=== PATIENT | male | born 1960 | race Caucasian/White ===

== ENCOUNTER 2018-07-16 09:13 | Inpatient (IN) | payer BC ==
[2018-07-16] VITALS (24 sets, daily range): BP systolic 88–177; BP diastolic 50–87; BMI 39.3
[~2018-07-16] VITALS: Ht 175.3 cm; Wt 120.9 kg
--- NOTE | ~2018-07-16 | CN ---
PATIENT NAME:YADI CLAY MEDICAL RECORD: [id number] : 64 LOCATION:[facility].CV06 ADMIT DATE: 07/16/18 ACCOUNT: [id number] CONSULTING PHYSICIAN: JESSY ALFARO MD REFERRING PHYSICIAN: JAYE GONZALEZ MD DATE OF CONSULTATION: 07/16/2018 CONSULT REQUESTING PHYSICIAN: Dr. Gonzalez REASON FOR CONSULTATION: Vent management, cardiopulmonary arrest. HISTORY OF PRESENT ILLNESS: Mr. Clay is a 57-year-old gentleman who was brought into the ER by EMS. The patient was walking with his friend and he complained of chest pain and just fell on his back. He injured his head. The friend called EMS as well as started resuscitating the patient almost for 30 minutes. The patient was intubated. On arrival to the ER, the patient was considering the chest pain, taken to the cardiac boot and shoe laborer and by Dr. Gonzalez and found out the patient has a right RCA total occlusion. Now, the patient is unresponsive. He is seizing. PAST MEDICAL HISTORY: 1. Obstructive sleep apnea. 2. Morbid obesity. 3. History of congestive heart failure. 4. Hypothyroidism. 5. Diabetes mellitus. PAST SURGICAL HISTORY: He has thyroidectomy. ALLERGIES: There are no known drug allergies. MEDICATIONS: On Xceive is reviewed. PERSONAL AND SOCIAL HISTORY: The patient is an ex-smoker according to the . FAMILY HISTORY: Significant for hypertension. PHYSICAL EXAMINATION: GENERAL: Now, the patient is orally intubated and sedated. VITAL SIGNS: The blood pressure is 155 to 177/83, pulse is 96, respiration is 23, temperature 96.1, SPO2 is 96% to 100% on assist control mechanical ventilation, 60% oxygen. HEENT: Conjunctivae are pink. The pupil equal, round, reactive to light. NECK: Supple, no JVD. CHEST: Excursion is minimal on both sides. There is no wheeze, no rales. HEART: Rhythm regular, normal sound, no murmur. ABDOMEN: Soft, bowel sounds present. No hepatosplenomegaly. RECTAL: Deferred. EXTREMITIES: No cyanosis, no clubbing, no pedal edema. SKIN: Warm, normal turgor. CENTRAL NERVOUS SYSTEM: The patient is orally intubated and sedated. The pupils are equal and reactive to light. LABORATORY DATA: CBC: The WBC is 22.7, hemoglobin 14.6, hematocrit 44.6, and the platelet count 193. CONSULT REPORT [id number] YADI CLAY Chemistry: Sodium 140, potassium 4.1, BUN is 17, creatinine 1.1. The AST is 383, ALT is 540. Albumin is 3.3. ABG, the pH is 7.25, pCO2 is 40.7, the pO2 was 235, the bicarbonate 18.2, the lactic acid level is 3. IMPRESSION: 1. Acute respiratory failure secondary to #2. 2. Cardiopulmonary arrest. 3. Possible anoxic encephalopathy. 4. Seizure disorder. 5. Metabolic acidosis. 6. Congestive heart failure with ejection fraction of 30%. 7. Lactic acidosis. 8. Leukocytosis. 9. Elevated liver enzymes, most likely shock liver. 10. Coronary artery disease, total occlusion of right coronary artery and status post stent. RECOMMENDATIONS: 1. I will continue mechanical ventilation, adjust the setting. 2. Start on empiric Zosyn. 3. Start on propofol. 4. Increase the dose of Ativan to 4 mg p.o. 1-2 hourly p.r.n. for seizure. 5. DVT and GI bleed prophylaxis. 6. Cerebyx 1000 mg, the patient is already loaded. 7. Bicarbonate drip. 8. Follow up labs and chest radiograph. Discussed in length with the family. Discussed with Dr. Kolb. The CT scan is negative for any acute process except the hematoma. The critical care time 60 minutes. TRANSINT:[id number] Voice Confirmation ID: [id number] DOCUMENT ID: [id number] JESSY ALFARO MD CC: [id number] DICTATION DATE: 07/16/181728 ADMINISTRATIVE ASSISTANT RECEPTIONIST: 07/17/18 0641 ADM IN [facility] [address] [place] [address]
--- NOTE | ~2018-07-16 | MORECARE ---
CASE MANAGEMENT DISCHARGE SUMMARY PATIENT: YADI CLAY UNIT: [id number] ADM DATE: 07/16/18 AGE: 57 : 64 SEX: M ROOM/BED: D.[facility] AUTHOR: BAM HUBBARD PHYSICIAN: REFERRING PHYSICIAN: JAYE RICHARDS MD DATE OF SERVICE: 07/18/18 Discharge Plan Patient Name: YADI CLAY Facility: [facility]:[place] : 1960 Planned Disposition: Acute Care Hospital Anticipated Discharge Date: 07/17/18 Discharge Date: 07/17/2018 Expected LOS: 1 Initial Reviewer: [email or web address] Initial Review Date: 07/16/2018 Generated: 07/18/18 10:57 am Comments DCP- Discharge Planning Updated by [email or web address]: Xiomara Lanier on 07/17/18 5:[address] LATE ENTRY 1345 DR RICHARDS TELEPHONED [facility] TO [place] FOR TRANSFER TO NEUROLOGY SERVICES WHICH IS NOT AVAILABLE AT [facility] COORDINATORS. THEY CALLED [facility] FOR [facility] AND FAXED TRANSFER BACK AGREEMENT. CHART PREPARED. DISC HAD BEEN REQUESTED WITH RADIOLOGY FILMS. PATIENT ON VENT W/ CHEST TUBE, CARDIAC MONITORING, IV FLDS, IV VANCOMYCIN, IV DILANTIN, IV ZOSYN, DIPRIVAN. TC TO [facility] TO [place] GROUND TRANSPORT DIRECTED BY DR RICHARDS. PCS FORM COMPLETED. CM SPOKE WITH OTILIA AT [facility]. PATIENT ACCEPTED BY DR VENKAT GUADALUPE. AWAITING BED ASSIGNMENT. 1700 CM ADVISED THAT BED HAD BEEN ASSIGNED. ALEISHA, NURSING PHARMACIST [facility] OF TRANSFER. Last DP export: 07/17/18 5:21 Patient Name: YADI CLAY Page 31169 at 0957 All edits/amendments must be made on the electronic document DICTATION DATE: 07/18/18956 CYLINDER MACHINE OPERATOR PULP DRIER: LUIS 07/18/18956 RPT#: [id number] DC DATE:07/17/18 STATUS: DIS IN [facility] [address] [place] [address] END OF REPORT
--- NOTE | ~2018-07-16 | HEMODYNAMI ---
PATIENT:YADI CLAY MEDICAL RECORD: [id number] : 64 LOCATION:[facility] ADMISSION DATE: 07/16/18 Generatedon:07/16/201810:45 Patient name: YADI CLAY Patient #: [id number] SSN: : 1 11/12/1959 Date of study: 07/16/2018 Page: Of Hemodynamic Procedure Report Patient Data Patient Demographics Procedure consent was obtained First Name: YADI Gender: Male Last Name: OBED : 1960 Patient #: [id number] Age: 57 year(s) Race: Unknown Additional ID: [id number] Contact details [address]: [address] [place] [address] State: [place] City: [place] Zip code: [address] Admission Admission Data Admission Date: 07/16/2018 Admission Time: 9:13 Admit Source: Emergency department Height (in.): 70 BSA: 2.51 (m2) Height (cm.): 177.8 BMI: 44.48 (kg/m2) Weight (lbs.): 310 Weight (kg.): 140.61 Procedure Procedure Types Cath Procedure Diagnostic Procedure [facility] w/Coronaries Sedation Charges Moderate Sedation up to 15 minutes PCI Procedure AMI/SVG/HIDE HOUSE SUPERVISOR PTCA or Stent AMI-BMS/JAMEY Initial Procedure Description Procedure Date Procedure Date: 07/16/2018 Procedure Start Time: 9:58 Procedure End Time: 10:21 Procedure Staff Name Function Braeden Gonzalez MD Performing Physician Mindy Estrada RT Monitor Hilario Millan RN Nurse Anam Osullivan RT Scrub Procedure Data Cath Procedure Fluoroscopy Diagnostic fluoroscopy Total fluoroscopy Time: 2.7 time: 2.7 min min Diagnostic fluoroscopy Total fluoroscopy dose: 875 dose: 875 mGy mGy Contrast Material Contrast Material Type Amount (ml) Isovue 300 92 Entry Location Entry Primary Successful Side Size Upsize Upsize Entry Closure Succes sful Closure Location (Fr) 1 (Fr) 2 (Fr) Remarks Device Remarks Femoral Right 6 Fr Exoseal artery Short Estimated blood loss: 10 ml Diagnostic catheters Device Type Used For End Catheter Placement MULTIPACK Pigtail 5 Fr Procedure catheter MULTIPACK JL 4.0 5Fr Procedure catheter MULTIPACK 3DRC 5Fr Procedure catheter Procedure Complications No complications Procedure Medications Medication Administration Route Dosage Oxygen 100 Lidocaine 2% added to field 20 Heparin Flush Bag added to field 2 bags (1000units/500ml NS) 0.9% NaCl I.V. 100 ml/hr Dopamine I.V. drip 5 mcg/kg/min (400mg/250ml D5W) Heparin Bolus I.V. 5000 units Integrilin (Bolus I.V. 10.7 ml 2mg/ml) Integrilin (Bolus I.C. 10.7 ml 2mg/ml) Hemodynamics Rest BSA: 2.51 (m2) O2 Consumption: Estimated: 310.35 (ml/min) O2 Consumption indexed : Estimated:123.65 (ml/min/m) Heart Rate: 84 (bpm) Snapshots Pre Cath Intra NCS Post Cath Vital Signs Time Heart Resp SPO2 etCO2 NIBP Rhythm Pain Sedation Rate (ipm) (%) (mmHg) (mmHg) Status Level (bpm) 9:50:58 85 8 100 0 83/40(63) NSR 0 (11) 4(A) , No pain 9:55:16 82 8 100 0 92/42(63) NSR 0 (11) 4(A) , No pain 9:59:32 82 8 92 0 80/62(68) NSR 0 (11) 4(A) , No pain 10:03:44 83 8 99 0 98/52(72) NSR 0 (11) 4(A) , No pain 10:08:04 56 8 100 0 97/42(68) NSR 0 (11) 4(A) , No pain 10:12:20 82 8 98 0 95/56(67) NSR 0 (11) 4(A) , No pain 10:16:36 89 10 100 0 98/54(79) NSR 0 (11) 4(A) , No pain 10:20:54 92 13 100 0 107/48(80) NSR 0 (11) 4(A) , No pain 10:25:14 94 11 100 0 109/58(80) NSR 0 (11) 4(A) , No pain 10:29:36 95 14 100 0 108/53(74) NSR 0 (11) 4(A) , No pain 10:33:58 98 15 100 0 115/50(82) NSR 0 (11) 4(A) , No pain 10:38:21 97 18 100 0 116/61(93) NSR 0 (11) 4(A) , No pain 10:42:20 85 15 100 0 No Cuff NSR 0 (11) 4(A) , No pain Medications Time Medication Route Dose Verified Delivered Reason Notes Effectiveness by by 9:50:41 Oxygen intubated 100% Braeden Rich for low 02 sat s Carlos Millan RN 9:56:49 Lidocaine 2% added to 20ml vial Braeden Rich used for field Carlos Millan RN procedure 9:57:52 Heparin Flush added to 2 bags Braeden Rich used for Bag field Carlos Millan RN procedure (1000units/500ml NS) 9:57:59 0.9% NaCl I.V. 100 ml/hr Braeden Rich Per physician Carlos Millan RN 10:02:12 Dopamine I.V. drip 5 Braeden Rich For hypotensio n (400mg/250ml mcg/kg/min Carlos Millan RN D5W) 10:04:20 Heparin Bolus I.V. 5000 units Braeden Rich for verified Carlos Millan RN anticoagulation with dr gonzalez 10:05:43 Integrilin I.V. 10.7 ml Braeden Rich for (Bolus 2mg/ml) Carlos Millan RN antiplatelet therapy 10:07:37 Integrilin I.C. 10.7 ml Braeden Rich for total (Bolus 2mg/ml) Carlos Millan RN antiplatelet wastage therapy 8.6 ml of the total 3 vials used for procedure. Procedure Log Time Note 9:31:22 Admit Source: Emergency department 9:31:30 Diagnostic Cath status Emergency 9:31:32 Hilario Millan RN sent for patient. Start room use. 9:31:35 Time tracking: Call back (After hours or weekends) 9:31:47 Plan of Care:Hemodynamics will remain stable., Cardiac rhythm will remain stable., Comfort level will be maintained., Respiratory function will remain adequate., Patient/ family verbilizes understanding of procedure., Procedure tolerated without complication., Recovers from procedure without complications.. 9:31:50 Patient arrives emergently. 9:31:54 H&P Date Dictated: 07/16/2018 Emergent; H&P N/A. 9:31:58 Pre-procedure instructions explained to patient. 9:32:01 Family in waiting room. 9:32:05 Patient NPO since Midnight. 9:36:31 Patient Height : 70 inches 9:36:38 Patient Weight : 310 lbs 9:45:11 Patient received from ED to CCL 1 On ventilator. Tansferred to table in Supine position. 9:49:17 Warm blankets applied, and linden hugger turned on for patient comfort. 9:49:18 Correct patient and procedure confirmed by team. 9:49:19 Signed procedure consent form obtained from spouse. 9:49:32 ECG and BP/O2 sat monitors applied to patient. 9:49:33 Vital chart was started 9:50:41 Oxygen 100% intubated was administered by Hilario Millan RN; for low 02 sats; 9:55:10 Baseline sample Acquired. 9:55:16 Rhythm: sinus rhythm 9:55:50 Full Disclosure recording started 9:56:00 Patient diabetic? Yes. 9:56:02 If diabetic: On Metformin? No 9:56:14 IV patent on arrival in right forearm with 0.9% NaCl at [facility]. 9:56:29 Bilateral groins area was prepped with chlora-prep and draped in sterile fashion 9:56:31 Alarms reviewed by R. N. 9:56:31 Sharps counted by scrub and verified by R.N. 9:56:33 Physician arrived 9:56:33 --------ALL STOP TIME OUT------ 9:56:34 Final Timeout: patient, procedure, and site verified with staff and physician. All members of the team are in agreement. 9:56:40 Bilateral groins site verified by team. 9:56:43 Physical assessment completed. ASA score P 2 - A patient with mild systemic disease as per Braeden Gonzalez MD. 9:56:47 Sedation plan: IV Moderate Sedation Medication:Versed, Fentanyl 9:56:49 Lidocaine 2% 20ml vial added to field was administered by Hilario Millan RN; used for procedure; 9:57:52 Heparin Flush Bag (1000units/500ml NS) 2 bags added to field was administered by Hilario Millan RN; used for procedure; 9:57:56 Use device set Femoral Dx 9:57:58 Procedure started. 9:57:59 0.9% NaCl 100 ml/hr I.V. was administered by Hilario Millan RN; Per physician; 9:58:02 Local anesthetic to right femoral artery with Lidocaine 2% by Braeden Gonzalez MD.INITIAL ACCESS ONLY 9:58:13 A 6 Fr Short sheath was inserted into the Right Femoral artery 9:58:17 ACIST Syringe (41600) opened to sterile field. 9:58:18 Bag Decanter () opened to sterile field. 9:58:19 Medline Cath Pack ([id number]) opened to sterile field. 9:58:19 DIAGNOSTIC WIRE .035 260cm J wire (925011) opened to sterile field. 9:58:21 ACIST Hand Control (91894) opened to sterile field. 9:58:21 ACIST Manifold (69202) opened to sterile field. 9:58:22 DIAGNOSTIC Multipack 5Fr catheter set (SM1183) opened to sterile field. 9:58:22 Tegaderm 4 x 4 (1626W) opened to sterile field. 9:58:23 PERCUTANEOUS ENTRY 19GA needle opened to sterile field. 9:58:37 SHEATH Prelude 6Fr 0.035 (VUJ-2T-23-035) opened to sterile field. 9:59:22 A MULTIPACK Pigtail 5 Fr catheter was advanced over the wire and used for Procedure. 9:59:28 EF : 35 % 9:59:30 Catheter removed. 9:59:47 A MULTIPACK JL 4.0 5Fr catheter was advanced over the wire and used for Procedure. 10:00:38 LCA angiography performed. 10:01:15 Catheter removed. 10:01:36 A MULTIPACK 3DRC 5Fr catheter was advanced over the wire and used for Procedure. 10:02:12 Dopamine (400mg/250ml D5W) 5 mcg/kg/min I.V. drip was administered by Hilario Millan RN; For hypotension; 10:02:17 RCA angiography performed. 10:02:18 Catheter removed. 10:04:20 Heparin Bolus 5000 units I.V. was administered by Hilario Millan RN; for anticoagulation; verified with dr tauth 10:04:54 GUIDE 6FR AR 2.0 SH catheter ([id number]) opened to sterile field. 10:04:58 Proceeding to intervention. 10:05:15 Study PCI Site: [place] mRCA has 100% stenosis. 10:05:35 6 Fr AR2 guide catheter was inserted over the wire 10:05:43 Integrilin (Bolus 2mg/ml) 10.7 ml I.V. was administered by Hilario Millan RN; for antiplatelet therapy; 10:05:44 choice pt wire advanced. 10:06:34 Inflate balloon Inflation number: 1 A EUPHORA 2.5 x 15 Balloon ([id number]) was prepped and advanced across the Mid RCA, then inflated to 13 LEIA for 0:03 (min:sec). 10:06:48 Inflation number: 2 The EUPHORA 2.5 x 15 Balloon ([id number]) was reinflated across the Mid RCA, to 13 LEIA for 0:10 (min:sec). 10:07:37 Integrilin (Bolus 2mg/ml) 10.7 ml I.C. was administered by Hilario Millan RN; for antiplatelet therapy; total wastage 8.6 ml of the total 3 vials used for procedure. 10:07:58 Balloon removed over the wire. 10:09:04 Place stent Inflation Number: 3 A INTEGRITY RX 3.0 x 22 stent ([id number]) was prepped and advanced across the Mid RCA. The stent was deployed at 11 LEIA for 0:04 (min:sec). 10:10:19 EXOSEAL 6Fr (EX600) opened to sterile field. 10:10:22 CHOICE PT Extra Support 182cm wire ([id number]) opened to sterile field. 10:10:24 INFLATOR Merit BasixCompak (SQ4992) opened to sterile field. 10:15:58 Wire removed. 10:15:58 Guide catheter removed. 10:16:10 Sheath removed intact; hemostasis achieved with Exoseal to the Right Femoral artery. 10:16:13 Procedure ended.(Physican Out) 10:17:55 Fluoroscopy time 02.70 minutes. 10:18:00 Fluoroscopy dose: 875 mGy 10:18:00 Flurop Dose total: 875 10:19:43 Contrast amount:Isovue 300 92ml. 10:19:46 Sharps counted by scrub and verified by R.N. 10:19:47 Insertion/operative site no bleeding no hematoma. 10:19:51 Post Procedure Pulses reassessed and unchanged 10:19:55 Post-procedure physical assessment completed. ASA score P 2 - A patient with mild systemic disease as per Braeden Gonzalez MD. 10:19:58 Post procedure rhythm: sinus rhythm 10:20:04 Estimated blood loss: 10 ml 10:20:06 Post procedure instruction explained to patient.Patient verbalizes understanding. 10:20:41 Procedure type changed to Cath procedure, Diagnostic procedure, LHC, LHC w/Coronaries, Sedation Charges, Moderate Sedation up to 15 minutes, PCI procedure, AMI/SVG/HIDE HOUSE SUPERVISOR PTCA or Stent, AMI-BMS/JAMEY Initial 10:20:43 Procedure and supply charges have been captured, reviewed, submitted and are correct. 10:21:02 Procedure Complication : No complications 10:21:05 See physician's report for complete and final results. 10:21:07 Report given to CVICU. 10:21:11 Patient transfered to CVICU with Bed. 10:21:34 Procedure ended. 10:21:34 Full Disclosure recording stopped 10:21:37 End room use (Document Last) 10:45:52 Vital chart was stopped Intervention Summary Intervention Notes Time ActionType Lesion and Equipment Action# Pressure Duration Attributes Used 10:06:34 Inflate Mid RCA EUPHORA 2.5 1 13 00:03 balloon x 15 Balloon ([id number]) 10:06:48 Reinflate Mid RCA EUPHORA 2.5 2 13 00:10 balloon x 15 Balloon ([id number]) 10:09:04 Place stent Mid RCA INTEGRITY RX 3 11 00:04 3.0 x 22 stent ([id number]) Device Usage Item Name Manufacture Quantity Catalog Number Hospital Part Current Minimal Lot# / Charge Number Stock Stock Serial# Code ACIST Syringe Acist 1 02007 090502 439499 234420 20 (04530) [employer] Systems Inc Bag Decanter Microtek 1 174050 27173 095264 5 () Medical Inc. Medline Cath Medline 1 [id number] 492518 12219 979186 5 Pack ([id number]) DIAGNOSTIC WIRE St Lee 1 377866 162868 717326 889495 30 .035 260cm J wire (452028) ACIST Hand Acist 1 53640 561832 857343 293623 5 Control (06026) Medical Systems Inc ACIST Manifold Acist 1 31097 531574 205737 811180 5 (81241) Medical Systems Inc DIAGNOSTIC Cardinal 1 EP4429 804317 52249 407500 30 Multipack 5Fr Health catheter set (QA3693) Tegaderm 4 x 4 3M 1 1626W 931776 203334 472273 5 (1626W) PERCUTANEOUS Cook Medical 1 P59137 166598 192593 5 ENTRY 19GA needle SHEATH Prelude Merit 1 [id number] 367713 7919845 353174 5 6Fr 0.035 Medical (MCG-9F-83-035) MULTIPACK Cardinal 1 444512 5 Pigtail 5 Fr Health catheter MULTIPACK JL Cardinal 1 505163 5 4.0 5Fr Health catheter MULTIPACK 3DRC Cardinal 1 402704 5 5Fr catheter Health GUIDE 6FR AR Medtronic 1 [id number] 529488 03174 189876 1 2.0 SH catheter ([id number]) EUPHORA 2.5 x Medtronic 1 [id number] 943064 915993 084772 5 [id number] 15 Balloon ([id number]) INTEGRITY RX Medtronic 1 [id number] 522024 742949 774549 5 [id number] 3.0 x 22 stent ([id number]) EXOSEAL 6Fr Cardinal 1 EX600 839013 865144 716408 10 (EX600) Health CHOICE PT Extra Merrill 1 [id number] 455693 462993 495275 5 Support 182cm Scientific wire ([id number]) INFLATOR Merit Merit 1 XP1955 856023 534232 128633 15 [facility] (LC1775) Signature Audit Onset Stage Time Signature Unsigned Intra-Procedure 07/16/2018 Mindy Estrada 10:45:49 AM RT(R) Signatures Monitor : Mindy Estrada Signature : RT Date : Time : [facility] [address] [place] [address]
--- NOTE | ~2018-07-16 | OP ---
PATIENT NAME: YADI CLAY MEDICAL RECORD: [id number] :64 LOCATION:[facility]06 ADMISSION DATE:07/16/18 SURGEON: JAYE RICHARDS MD DATE OF OPERATION: 07/16/2018 PROCEDURES: 1. PTCA and stent of RCA. 2. Left heart catheterization. 3. Selective coronary angiography. 4. Left ventriculogram. INDICATION: Status post cardiopulmonary arrest, myocardial infarction. PROCEDURE IN DETAIL: After informed consent was obtained and after detailed explanation of risks, benefits as well as alternative therapies, the patient's family elected to proceed with emergent cardiac catheterization. FINDINGS: The left ventriculogram was performed in standard 30-degree SHIN view, reveals global hypokinesis throughout all segments. Overall ejection fraction 30% to 35%. SELECTIVE CORONARY ANGIOGRAPHY: 1. Left main showed no significant angiographic disease. 2. Left anterior descending has 90% stenosis proximally, 90% stenosis in the mid vessel. 3. The left circumflex shows mild irregularities, but no flow-limiting stenosis. 4. Right coronary has acute 100% occlusion in the mid vessel. PTCA AND STENT OF THE RCA: The stent used is a 3.0 x 22-mm Integrity. Result was 0% residual stenosis. OVERALL IMPRESSION: Successful PTCA and stent of the RCA for an acute inferior myocardial infarction going from 100% initial stenosis to 0% residual. TRANSINT:[id number] Voice Confirmation ID: [id number] DOCUMENT ID: [id number] JAYE RICHARDS MD at 1913 CC: [id number] DICTATION DATE: 07/16/18 1016 LIQUOR MAKER: 07/16/18 1135 DIS IN 07/17/18 [facility] [address] [place] [id number]
--- NOTE | ~2018-07-16 | HP ---
PATIENT: YADI GOTTLIEB MEDICAL RECORD: [id number] ACCOUNT: [id number] LOCATION:[facility] : 64 ADMISSION DATE: 07/16/18 PCP: No PCP HISTORY AND PHYSICAL EXAMINATION DIAGNOSES: 1. Status post cardiopulmonary arrest. 2. Paroxysmal atrial fibrillation. 3. Obesity. 4. Diabetes. 5. Hypertension. HISTORY: Mr. Gottlieb was exercising this morning, grabbed his chest, had a witnessed arrest. CPR was started by a lay person at the site. EMS showed up. He was in PEA for approximately 30 minutes of CPR. He then regained a spontaneous pulse. He was initially in atrial fibrillation after regaining, is now in sinus rhythm. He has systolic blood pressure in the 80s. His EKG has a wide complex. He has no history of ischemic heart disease. PHYSICAL EXAMINATION: GENERAL APPEARANCE: Well-nourished, well-developed, appears stated age. Level of distress, comfortable. PSYCHIATRIC: Mental status, alert, normal affect. Orientation, oriented to time, place and person. EYES: Lids and conjunctiva, noninjected. No discharge, no pallor. ENT: Lips, teeth, gums, normal dentition. Oropharynx, no cyanosis, no pallor. NECK: Carotid arteries, bilateral normal upstroke, no bruits, no thrills. JUGULAR VEINS: No jugular venous pressure or distention. CERVICAL LYMPH NODES: Nontender, nonenlarged. THYROID: Not enlarged. Nontender. No nodules. LUNGS: Respiratory effort, unlabored. CHEST: Normal curvature. No thoracic deformity. No chest wall tenderness. Percussion, resonant. Auscultation, clear. No wheezes, no rales, no rhonchi. CARDIOVASCULAR: Precordial exam, nondisplaced. No heaves or pericardial thrills. Rate and rhythm, regular. Heart sounds, normal S1, normal S2. No S3, no gallop, no rub. Systolic murmur, not heard. Diastolic murmur, not heard. EXTREMITIES: No cyanosis, no edema. Peripheral pulses, full and equal in all extremities, except as noted. No bruits appreciated. ABDOMEN: Soft, nondistended. Normal aorta. No bruit. Nontender. No masses. Liver, nontender, no hepatomegaly. Spleen, nontender, no splenomegaly. MUSCULOSKELETAL: No joint tenderness. No joint swelling. No erythema. NEUROLOGICAL: Normal gait, normal strength, normal tone. SKIN: Warm and dry. OVERALL IMPRESSION: Most likely this is sudden cardiac due to ischemic heart disease. We will proceed with emergent coronary angiography. Further care depends upon the findings of the angiography. TRANSINT:[id number] Voice Confirmation ID: [id number] DOCUMENT ID: [id number] HISTORY AND PHYSICAL [id number] YADI GOTTLIEB JEFFREY MD at 1312 CC: [id number] DICTATION DATE: 07/16/18 1015 MANUFACTURING SUPERVISOR 2ND SHIFT: 07/16/18 1103 ADM IN [facility] [address] [place] [id number]
--- NOTE | ~2018-07-16 | MORECARE ---
CASE MANAGEMENT DISCHARGE SUMMARY PATIENT: YADI CLAY UNIT: [id number] ADM DATE: 07/16/18 AGE: 57 : 64 SEX: M [facility] AUTHOR: BAM HUBBARD PHYSICIAN: REFERRING PHYSICIAN: JAYE RICHARDS MD DATE OF SERVICE: 07/17/18 Discharge Plan Patient Name: YADI CLAY Facility: [facility]:[place] : 1960 Planned Disposition: Acute Care Hospital Anticipated Discharge Date: 07/17/18 Discharge Date: Expected LOS: 1 Initial Reviewer: [email or web address] Initial Review Date: 07/16/2018 Generated: 07/17/18 7:14 pm Patient Name: YADI CLAY Page 33771 at 1815 All edits/amendments must be made on the electronic document DICTATION DATE: 07/17/181813 FIELD CONTRACTOR: LUIS 07/17/181813 RPT#: [id number] DC DATE: STATUS: ADM IN [facility] [address] [place] [address] END OF REPORT
--- NOTE | ~2018-07-16 | DS ---
PATIENT:YADI CLAY :64 MEDICAL RECORD: [id number] DISCHARGE SUMMARY ADMISSION DATE: 07/16/18 DISCHARGE DATE: 07/17/18 DIAGNOSES: 1. Inferior myocardial infarction. 2. PTCA and stent of RCA. 3. Anoxic brain injury. 4. Seizure. 5. Spontaneous pneumothorax requiring chest tube. 6. Respiratory failure requiring intubation. HOSPITAL COURSE: This is a gentleman with no previous medical history, no previous cardiac history, had an acute inferior myocardial infarction yesterday. He unfortunately was down in the field; however, CPR was started by layperson relatively immediately. He was 30 minutes without a discernible spontaneous heart rate and blood pressure. This was regained as the ambulance was pulling up to the hospital. He went to the cardiac catheterization laboratory revealing total occlusion of the RCA, underwent PTCA and stent of the RCA. He was hemodynamically stable with no requirement of pressors. No dysrhythmias. Good heart rate and blood pressure. However, he began having seizure activity, which did respond to IV Valium and IV Dilantin. He had a spontaneous pneumothorax, which was treated by the chest tube; however, there was no other pulmonary issues and had no problems oxygenating. He was transferred to [facility] secondary to the need for neurologic care and neurologic evaluation. Further care depends upon his neurologic status. TRANSINT:[id number] Voice Confirmation ID: [id number] DOCUMENT ID: [id number] JAYE RICHARDS MD at 1914 CC: [id number] DICTATION DATE: 07/17/18 1314 CONVEYOR TENDER: 07/18/18 0917 DIS IN 07/17/18 [place] [id number] [place] [id number]
--- NOTE | ~2018-07-16 | MORECARE ---
CASE MANAGEMENT DISCHARGE SUMMARY PATIENT: YADI CLAY UNIT: [id number] ADM DATE: 07/16/18 AGE: 57 : 64 SEX: M ROOM/BED: [facility] AUTHOR: BAM HUBBARD PHYSICIAN: REFERRING PHYSICIAN: JAYE RICHARDS MD DATE OF SERVICE: 07/17/18 Discharge Plan Patient Name: YADI CLAY Facility: [facility]:[place] : 1960 Planned Disposition: Acute Care Hospital Anticipated Discharge Date: 07/17/18 Discharge Date: Expected LOS: 1 Initial Reviewer: [email or web address] Initial Review Date: 07/16/2018 Generated: 07/17/18 7:21 pm Comments DCP- Discharge Planning Updated by [email or web address]: Xiomara Lanier on 07/17/18 5:[address] LATE ENTRY 1345 DR RICHARDS TELEPHONED [facility] TO ARRANGE FOR TRANSFER TO NEUROLOGY SERVICES WHICH IS NOT AVAILABLE AT [facility] NURSE IN COMMUNICATION WITH TRANSFER COORDINATORS. THEY CALLED [facility] FOR [facility] AND FAXED TRANSFER BACK AGREEMENT. CHART PREPARED. DISC HAD BEEN REQUESTED WITH RADIOLOGY FILMS. PATIENT ON VENT W/ CHEST TUBE, CARDIAC MONITORING, IV FLDS, IV VANCOMYCIN, IV DILANTIN, IV ZOSYN, DIPRIVAN. TC TO [facility] TO ARRANGE GROUND TRANSPORT DIRECTED BY DR RICHARDS. PCS FORM COMPLETED. CM SPOKE WITH OTILIA AT [facility]. PATIENT ACCEPTED BY DR VENKAT GUADALUPE. AWAITING BED ASSIGNMENT. 1700 CM ADVISED THAT BED HAD BEEN ASSIGNED. ALEISHA, NURSING GARMENT ALTERATION EXAMINER COGNIZANT OF TRANSFER. Last DP export: 07/17/18 5:15 Patient Name: YADI CLAY Page [id number] at 1821 All edits/amendments must be made on the electronic document DICTATION DATE: 07/17/181820 CRIMINAL ATTORNEY: LUIS 07/17/181820 RPT#: [id number] DC DATE: STATUS: ADM IN [facility] [address] [place] [address] END OF REPORT
[2018-07-16] MEDS ORDERED: BLOOD PRESSURE (09:38)
[2018-07-16 11:35] LABS: HEMATOCRIT 44.6 % (42.0-54.0); HEMOGLOBIN 14.6 g/dL (13.5-17.5); MCH 29.2 pg (26.0-34.0); MCHC 32.7 g/dL (31.0-37.0); MCV 89.2 fL (80.0-100.0); MEAN PLATELET VOLUME 12.3 fL (7.4-10.4); PLATELET COUNT 193 10x3/uL (130-400); RDW 15.7 % (11.5-14.5); WBC 22.7 10x3/uL (4.8-10.8)
[2018-07-16 11:36] LABS: APTT 32.6 SECONDS (22.8-39.4)
[2018-07-16 11:42] LABS: ALBUMIN 3.3 g/dL (3.4-5.0); ANION GAP 26.6 mmol/L (8-16); BILIRUBIN - TOTAL 0.49 mg/dL (0.2-1.3); CALCIUM 8.7 mg/dL (8.5-10.1); CARBON DIOXIDE 14.5 mmol/L (21.0-32.0); CREATININE - SERUM 1.1 mg/dL (0.6-1.3); INR 1.28 (0.85-1.17); POTASSIUM - SERUM 4.1 mmol/L (3.5-5.1); PROTEIN - SERUM 6.7 g/dL (6.4-8.2); PROTIME 15.6 SECONDS (11.6-15.0)
[2018-07-16 11:45] LABS: TROPONIN-I 0.02 ng/mL (0.000-0.060)
[2018-07-16 12:23] LABS: LYMPHOCYTES 17 % (15-50); MONOCYTES 1 % (2-11); NEUTROPHILS 69 % (40-80); PLATELET ESTIMATE NORMAL
[2018-07-17] VITALS (19 sets, daily range): BP systolic 87–141; BP diastolic 45–72; Ht 175.3 cm; Wt 120.9 kg
[2018-07-17 05:51] LABS: BASOPHILS 0.1 % (0-2); EOSINOPHILS 0 % (0-7); HEMATOCRIT 39.6 % (42.0-54.0); HEMOGLOBIN 13.5 g/dL (13.5-17.5); IMMATURE GRANULOCYTES 0.5 % (0-5); LYMPHOCYTES 4.8 % (15-50); MCH 29.2 pg (26.0-34.0); MCHC 34.1 g/dL (31.0-37.0); MEAN PLATELET VOLUME 10.7 fL (7.4-10.4); MONOCYTES 8.3 % (2-11); NEUTROPHILS 86.3 % (40-80); RBC 4.62 10x6/uL (4.20-6.10); RDW 15.8 % (11.5-14.5); WBC 18.3 10x3/uL (4.8-10.8)
[2018-07-17 06:00] LABS: MCV 85.7 fL (80.0-100.0); PLATELET COUNT 139 10x3/uL (130-400)
[2018-07-17 06:35] LABS: BILIRUBIN - TOTAL 0.61 mg/dL (0.2-1.3); CALCIUM 8.3 mg/dL (8.5-10.1); CREATININE - SERUM 1.1 mg/dL (0.6-1.3); MAGNESIUM - SERUM 1.7 mg/dL (1.8-2.4); POTASSIUM - SERUM 3.5 mmol/L (3.5-5.1); PROTEIN - SERUM 6.3 g/dL (6.4-8.2)
[2018-07-17 06:38] LABS: CARBON DIOXIDE 26.5 mmol/L (21.0-32.0)
== END 2018-07-17 22:25 | disposition short-term general hospital (02) | DRG 248 ==
LOC: D.CATH 09:13 → D.ER 09:13 → EDBD 09:13 → EDSTATUS 09:30 → D.CVICU 10:42
PROVIDERS: Family Medicine; Internal Medicine Interventional Cardiology; Internal Medicine Pulmonary Disease
PROC: B2151ZZ Fluoroscopy of Left Heart using Low Osmolar Contrast (ICD-10-PCS; 2018-07-16)
PROC: 4A023N7 Measurement of Cardiac Sampling and Pressure, Left Heart, Percutaneous Approach (ICD-10-PCS; 2018-07-16)
PROC: 5A1935Z Respiratory Ventilation, Less than 24 Consecutive Hours (ICD-10-PCS; 2018-07-16)
PROC: 0BH17EZ Insertion of Endotracheal Airway into Trachea, Via Natural or Artificial Opening (ICD-10-PCS; 2018-07-16)
PROC: 02703DZ Dilation of Coronary Artery, One Artery with Intraluminal Device, Percutaneous Approach (ICD-10-PCS; principal; 2018-07-16 09:31)
PROC: B2111ZZ Fluoroscopy of Multiple Coronary Arteries using Low Osmolar Contrast (ICD-10-PCS; 2018-07-16 09:31)
PROC: 0W9930Z Drainage of Right Pleural Cavity with Drainage Device, Percutaneous Approach (ICD-10-PCS; 2018-07-17)
DX: I21.19 ST elevation (STEMI) myocardial infarction involving other coronary artery of inferior wall (principal); I46.9 Cardiac arrest, cause unspecified; J96.00 Acute respiratory failure, unspecified whether with hypoxia or hypercapnia; J93.83 Other pneumothorax; E87.2 Acidosis; G93.1 Anoxic brain damage, not elsewhere classified; I24.9 Acute ischemic heart disease, unspecified; I48.0 Paroxysmal atrial fibrillation; Z87.891 Personal history of nicotine dependence; G47.33 Obstructive sleep apnea (adult) (pediatric); E66.01 Morbid (severe) obesity due to excess calories; Z68.39 Body mass index [BMI] 39.0-39.9, adult; E03.9 Hypothyroidism, unspecified; E11.65 Type 2 diabetes mellitus with hyperglycemia; R56.9 Unspecified convulsions; R74.8 Abnormal levels of other serum enzymes; I25.10 Atherosclerotic heart disease of native coronary artery without angina pectoris; E83.42 Hypomagnesemia; I50.9 Heart failure, unspecified